=== PATIENT | female | born 1965 | race Caucasian/White ===

== ENCOUNTER 2016-05-09 14:11 | Emergency (ER) | payer MEDICAID ==
[~2016-05-09] VITALS: Wt 60.0 kg
[2016-05-09] MEDS ORDERED: KETOROLAC 30 MG INJ IM STA (16:04)
[2016-05-09] MEDS ORDERED: ONDANSETRON (ODT) 4 MG TAB ODT STA (16:16)
[2016-05-09] MEDS ORDERED: OXYCODONE/ACETAMINOPHEN (5/325) TAB PO ONE (16:30)
[2016-05-09 16:32] LABS: ADD UMIC NO; URINE BILIRUBIN (Dip) NEGATIVE (NEGATIVE); URINE BLOOD (Dip) NEGATIVE (NEGATIVE); URINE COLOR LT. YELLOW (YELLOW); URINE GLUCOSE (Dip) NEGATIVE (NEGATIVE); URINE KETONES (Dip) NEGATIVE (NEGATIVE); URINE LEUKOCYTE ESTERASE (Dip) NEGATIVE (NEGATIVE); URINE NITRITE (Dip) NEGATIVE (NEGATIVE); URINE TOTAL PROTEIN (Dip) NEGATIVE (NEGATIVE); URINE UROBILINOGEN (Dip) 0.2 E.U./dL (0.1-1.0)
--- NOTE | 2016-05-09 17:55 | RADRPT ---
PROCEDURE: US Pelvis. CLINICAL INDICATION: Pelvic pain TECHNIQUE: Multiple sonographic images of the pelvis were obtained utilizing a transabdominal and endovaginal technique. The images were reviewed on a PACS workstation. COMPARISON: None. FINDINGS: The uterus is visualized and measures 6.8 x 3 x 3.7 cm in size. The endometrial echo complex is norm al and measures 7.7 mm. Echogenic fluid is seen in the endocervical canal. There is no evidence for free fluid. The right ovary has a normal echotexture and measures 2.9 x 1.2 x 1.3 cm. The left ova ry has a normal echotexture and measures 2.3 x 1.6 x 1.7 cm. A left ovarian structure is seen measur ing 3.1 cm and size and is heterogeneous in echogenicity with no significant flow. No other adnexal masses are noted. IMPRESSION: 1. Left ovarian heterogeneous structure which may represent a hemorrhagic cyst. A 6-week follow-up is recommended to ensure resolution. 2. Echogenic fluid in the in the endocervical canal. RPTAT: HPNM Physician Gallo Date Time Electronically viewed and signed by Physician Gallo on 05/09/2016 17:54 /
[2016-05-09] MEDS ORDERED: IBUP-1542 PO (18:13)
[2016-05-09] MEDS ORDERED: OXYC-279 PO (18:13)
[2016-05-09 18:25] VITALS: BP 135/82; PULSE 66; RESP 18; TEMP 98.8
--- NOTE | 2016-05-09 18:47 | ERD ---
ER Documentation Chief Complaint Date/Time DATE: 05/09/16 TIME: 18:46 Chief Complaint LEFT LOWER ABD PAIN AND LOW BACK PAIN ONSET LAST NIGHT.NO N/V HPI 42-year-old woman presents with left pelvic pain beginning last night. Patient denies previous episodes of this type of pain and states the left lower pelvic pain radiates to the back, it is nonexertional, not associated with fevers or chills. Patient denies nausea or vomiting, no dysuria, no vaginal discharge, no recent weight loss, no complaints of chest pain or shortness of breath. ROS All systems reviewed and are negative except as per history of present illness. Medications Home Meds Active Scripts Ibuprofen* (Motrin*) 600 Mg Tab, 600 MG PO Q8 Y for PAIN AND/OR INFLAMMATION, # 30 TAB Prov:MARILYN LEONG MD 05/09/16 Oxycodone HCl/Acetaminophen (Percocet 5-325 mg Tablet) 1 Each Tablet, 1 EACH PO TID for PAIN, #12 TAB Prov:MARILYN LEONG MD 05/09/16 PMhx/Soc None FmHx Family History: No diabetes Physical Exam Vitals Vital Signs Date Time Temp Pulse Resp B/P Pulse Ox O2 Delivery O2 Flow Rate FiO2 05/09/16 18:25 98.8 66 18 135/82 98 Room Air 05/09/16 14:20 98.8 102 22 140/84 98 Physical Exam GENERAL: Well-developed, well-nourished, well-hydrated, in no apparent distress , looks nontoxic in appearance HEENT: Moist mucous membranes, pink conjunctiva, no cervical spine tenderness or step-off deformities, no goiter, no jaundice or icterus, extraocular movements intact without pain. No submandibular induration, and no pharyngeal erythema NEURO: Alert and oriented 3, cranial nerves II through XII intact bilaterally, pupils equal round reactive to light, no focal deficits or facial asymmetry, sensation intact distally Strength 5/5 in upper and lower extremities bilaterally CARDIAC: Regular rate and rhythm, no murmurs rubs or gallops LUNGS: Clear bilaterally no wheezing crackles or stridor ABDOMEN: Soft nontender, no guarding, no rigidity, no rebound, no psoas sign no obturator sign. Normoactive bowel sounds SKIN: Warm and dry to touch, no abrasions, contusions, or hematomas, no lacerations, no ecchymosis, no target lesions, and without ulcers EXTREMITIES: No clubbing cyanosis or edema, calves are bilaterally symmetrical, no Homans sign, no popliteal cord sign. Distal pulses equal and bilateral PSYCH: Normal affect without agitation or irritability Results 24 hrs Laboratory Tests Test 05/09/16 16:11 Urine Bilirubin NEGATIVE Urine Clarity CLEAR Urine Color LT. YELLOW Urine Glucose NEGATIVE% Urine Hemoglobin NEGATIVE Urine Ketones NEGATIVE Urine Leukocyte Esterase NEGATIVE Urine Nitrite NEGATIVE Urine Specific [place] 1.010 Urine Total Protein NEGATIVE Urine Urobilinogen 0.2 E.U./dL Urine pH 6.0 Current Medications Medications (Trade) Dose Ordered Sig/Qian Route PRN Reason Start Time Stop Time Status Last Admin Dose Admin Ketorolac Tromethamine (Toradol) 30 mg ONCE STAT IM 05/09/16 16:04 05/09/16 16:06 DC 05/09/16 16:19 Oxycodone/ Acetaminophen (Percocet (5/ 325)) 1 tab ONCE ONCE PO 05/09/16 16:30 05/09/16 16:31 DC 05/09/16 16:19 Ondansetron HCl (Zofran Odt) 4 mg ONCE STAT ODT 05/09/16 16:16 05/09/16 16:17 DC 05/09/16 16:19 Procedures/MDM I administered Zofran 4 mg ODT for nausea, Percocet 1 tablet p.o., and Toradol 30 mg intramuscular injection. Urine test was negative, urine analysis was negative for infection. Nonobstetric pelvic ultrasound was performed revealing a hemorrhagic left ovarian cyst consistent with her symptoms, please refer to radiologist dictation for full report. Differential diagnoses considered, included but not limited to cervicitis, ovarian torsion, ectopic , abdominal aortic aneurysm, sepsis, stroke, meningitis, encephalitis, pneumonia, appendicitis, cholecystitis, bowel obstruction, pyelonephritis, nephrolithiasis, cystitis, as well as metabolic, hematologic, and electrolyte abnormalities. As well as abscess, cellulitis, fractures, and dislocations. Patient feels much better at this time, and vital signs are normal, symptoms have improved. I did give strict instructions to return to the ED if symptoms continue or worsen, patient will otherwise follow-up with primary care physician. Patient understood instructions and agreed to plan. Departure Diagnosis: Primary Impression: Ovarian cyst Laterality: left Qualified Code: N83.202 - Cyst of left ovary Additional Impression: Pelvic pain Condition: Good Patient Instructions: Ovarian Cyst Referrals: ENZO GONZALEZ MD, ASHKAN A. MD ZOHRABIAN, DAVID MD May 09, 2016 18:47
== END 2016-05-09 18:25 | disposition home or self-care (01) ==
LOC: FTE 14:11
DX: N83.202 Unspecified ovarian cyst, left side (principal)
CPT/HCPCS: 76830; 76856; 81003; J1885; Z7610; 96372